=== PATIENT | female | born 1960 | race Caucasian/White ===

== ENCOUNTER 2022-04-10 18:37 | Emergency (ER) | payer MEDICARE, MEDICAID, SELFPAY ==
[2022-04-10 18:54] VITALS: BP 148/55; PULSE 91; RESP 20; TEMP 37.3; O2SAT 97
--- NOTE | 2022-04-10 18:56 | ED.URI ---
HPI - URI/Sore Throat General Chief Complaint: Upper Respiratory Infection Stated Complaint: Cough History of Present Illness HPI Narrative: patient presents with cough worse when she lays down and nasal congestion for the past week no shortness of breath and no chest pain. patient is taking claritin for symptoms. Related Data Home Medications Medication Instructions Recorded Confirmed albuterol sulfate 90 mcg/actuation 2 puff inhalation Q4H PRN 04/10/22 04/10/22 aerosol inhaler Shortness Of Breath budesonide-formoterol HFA 160 1 inh inhalation DAILY 04/10/22 04/10/22 mcg-4.5 mcg/actuation aerosol inhaler (Symbicort) gabapentin 100 mg capsule 100 mg PO QPM 04/10/22 04/10/22 gabapentin 100 mg capsule 200 mg PO QAM 04/10/22 04/10/22 levothyroxine 50 mcg tablet 50 mcg PO DAILY 04/10/22 04/10/22 paroxetine HCl 40 mg tablet 40 mg PO DAILY 04/10/22 04/10/22 phenytoin sodium extended 100 mg 100 mg PO TID 04/10/22 04/10/22 capsule propranolol 40 mg tablet 40 mg PO TID 04/10/22 04/10/22 Allergies Allergy/AdvReac Type Severity Reaction Status Date / Time No Known Drug Allergies Allergy Unknown Verified 04/10/22 18:56 Review of Systems Review of Systems: CONSTITUTIONAL: Denies chills, or sweats. Reports fever and generalized body aches EYES: Denies visual changes, redness, or discharge. ENT: Denies otalgia. Reports nasal congestion runny nose and sore throat CARDIOVASCULAR: Denies chest pain, palpitations, or edema. RESPIRATORY: Denies dyspnea. Reports occasional cough GASTROINTESTINAL: Denies abdominal pain, nausea, vomiting, or diarrhea. GENITOURINARY: Denies dysuria or hematuria. SKIN: Denies rash or itching. MUSCULOSKELETAL: Denies back pain, joint pain, or myalgia. Reports generalized body aches NEUROLOGIC: Denies headache, numbness, or weakness. PSYCHIATRIC: Denies anxiety or depression. PMFSH Comments At time of signature, agree with nursing past medical, surgical, social and family history. There is no relevant family history pertinent to the presenting complaint Exam Narrative: The patient is a well-developed, well-nourished in no acute distress. SKIN: Skin is warm and dry without erythema, swelling or exudate. There is good turgor. No tenting. HEAD: Atraumatic. Normocephalic. No temporal or scalp tenderness. EYES: Moist and bright. Sclera and conjunctivae normal. No discharge. PERRLA. Extraocular motions intact. Gross visual acuity intact. EARS: Pinna is normal shape and contour. Clear external auditory canals. TM pearly stone with good cone of light, no erythema or suppuration. Bilateral cerumen noted no gross hearing deficit. NOSE: pink, moist mucosa with good air movement. Clear rhinorrhea without nasal flaring. Septum midline. Mouth: moist mucous membranes. THROAT; mild erythema noted to posterior oropharynx with moderate postnasal drainage. Without exudate or ulceration.. Uvula midline. Normal movement of soft palate. NECK: Supple and nontender with full range of motion without discomfort. No meningeal signs. LUNGS: Equal and bilateral breath sounds without wheezes, rales or rhonchi. CHEST: The chest wall is without retractions or use of accessory muscles. HEART: Has a regular rate and rhythm without murmur, gallops, click or rub. ABDOMEN: Soft, nontender with positive active bowel sounds. No rebound tenderness. EXTREMITIES: Without cyanosis, clubbing or edema. Equal 2+ distal pulses and 2 second capillary refill noted. NEUROLOGIC: alert, active, . The patient moves all extremities with normal muscle strength. Normal muscle tone is noted. Normal coordination is noted. NO focal neurological findings noted. Course Course Level of Care: Express Care Visit Vital Signs Vital signs: Vital Signs Temperature 37.3 C 04/10/22 18:54 Pulse Rate 91 04/10/22 18:54 Respiratory Rate 20 04/10/22 18:54 Blood Pressure 148/55 H 04/10/22 18:54 Pulse Oximetry 97 04/10/22 18:54 Oxygen Delivery Room A
[2022-04-10 18:59] VITALS: BP 148/55; PULSE 91; RESP 20; TEMP 37.3; O2SAT 97
== END 2022-04-10 19:04 | disposition home or self-care (01) ==
PROVIDERS: Emergency Provider Nurse Practitioner Family; PCP Family Medicine
DX: J06.9 Acute upper respiratory infection, unspecified (principal); R09.82 Postnasal drip; Z90.89 Acquired absence of other organs; G40.909 Epilepsy, unspecified, not intractable, without status epilepticus
CPT/HCPCS: 99213; G0463